=== PATIENT | male | born 1975 | race Caucasian/White ===

== ENCOUNTER 2020-04-09 15:23 | Outpatient (REF) | payer OTHER, SELFPAY ==
--- NOTE | 2020-04-09 15:24 | MR_ITS ---
EXAMINATION: MR THORACIC SPINE WITHOUT AND WITH CONTRAST CLINICAL INFORMATION: Thoracic spine tumor. COMPARISON: There are no prior images available for comparison. Reference is made to reports of an MRI scan of the abdomen [facility] 11/21/2019, and a CT scan of the abdomen and pelvis 11/20/2019. By report, the prior study demonstrated a lesion in the right neural foramen of T11. TECHNIQUE: MRI of the thoracic spine was obtained using routine sequences with and without contrast. Intravenous contrast: Gadavist 7 mL. Axial images do not include the levels of T1-T2 and T2-T3. FINDINGS: VERTEBRAL BODIES AND PARASPINAL STRUCTURES: There is a very slight dextroscoliosis. There is mild multilevel narrowing of intervertebral disc height. Vertebral body heights and contours are maintained and no fractures are demonstrated. Overall, marrow signal is homogenous. The paravertebral and visualized posterior thoracic and posterior superior abdominal structures are unremarkable. The conus is at the level of L1. Accounting for artifact, spinal cord signal appears normal. SPINAL LEVELS: T3-T4: There is a small posterior disc protrusion to the right of midline. There is no spinal cord compression or central stenosis. The neural foramina are patent bilaterally. T4-T5 through T10-T11: Posterior disc contours are normal. There is no spinal cord compression. The neural foramina are patent bilaterally. T11-T12: Posterior disc contour is normal. 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 It measures 1.8 x 1.2 x 2.3 cm in oblique AP, transverse and craniocaudal dimensions. There is no mass effect on the thecal sac. There is remodeling of the adjacent lamina of T11, and the inferior T11 facet, on the right. It does not demonstrate abnormal enhancement. There is no central stenosis or spinal cord compression. The left neural foramen is normal. T12-L1: The facet joints appear normal bilaterally. Disc contour is normal. There is no central stenosis or foraminal narrowing. MR/MR thoracic spine wo/w con IMPRESSION: 1. 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 It does not demonstrate abnormal enhancement. There is some remodeling of the adjacent osseous structures. 2. There are mild spondylitic changes at other levels as described above. There is no spinal cord compression or central stenosis. 3. If prior studies become available, direct comparison can be made.
== END 2020-04-09 23:59 | disposition home or self-care (01) ==
LOC: HO.MRI 15:23
PROVIDERS: PCP Internal Medicine; Visit Provider Internal Medicine
DX: D42.9 Neoplasm of uncertain behavior of meninges, unspecified (principal)
CPT/HCPCS: 72157; A9585

== ENCOUNTER 2020-11-22 14:03 | Outpatient (REF) | payer OTHER, SELFPAY ==
[2020-11-22 14:48] LABS: MANUAL DIFF FLAG NO
[2020-11-22 14:50] LABS: Basophils Percent Auto 0.4 % (0-2); Eosinophils Absolute Auto 0.2 X10*3/uL (0.0-0.4); Eosinophils Percent Auto 4.3 % (0-4); Hematocrit 40.5 % (42-52); Hemoglobin 13.9 g/dl (14.0-18.0); Lymphocytes Absolute Auto 1.6 X10*3/uL (1.2-4.9); Lymphocytes Percent Auto 31.1 % (20-40); Mean Corpuscular HGB Conc 34.3 g/dl (31.0-36.0); Mean Corpuscular Hemoglobin 28.6 pg (27.0-33.0); Mean Corpuscular Volume 83.3 fL (80-98); Mean Platelet Volume 11.3 fL (9.4-12.4); Monocytes Absolute Auto 0.4 X10*3/uL (0.1-1.2); Monocytes Percent Auto 7.6 % (2-11); Neutrophils Absolute Auto 2.9 X10*3/uL (2.0-8.3); Neutrophils Percent Auto 56.6 % (45-73); Platelet Count 148 X10*3/uL (160-400); Red Blood Count 4.86 X10*6/uL (4.60-5.80); Red Cell Distribution Width 12.3 % (11.0-16.0); White Blood Count 5.1 X10*3/uL (4.8-10.8)
[2020-11-22 15:11] LABS: Alanine Aminotransferase 16 U/L (0-40); Albumin Level 4.3 g/dL (3.5-5.0); Alkaline Phosphatase 60 U/L (39-117); Anion Gap 12 (12-20); Aspartate Amino Transferase 17 U/L (5-37); Bilirubin Total 0.9 mg/dL (0.0-1.0); Blood Urea Nitrogen 19 mg/dL (9-16); Calcium 9.3 mg/dL (8.4-10.2); Carbon Dioxide 29 mmol/L (22-29); Chloride 105 mmol/L (96-108); Estimated Glomerular Filt Rate > 60; Glucose Random 86 mg/dL (60-115); Potassium 4.5 mmol/L (3.3-5.1); Sodium 141 mmol/L (135-145); Total Protein 6.8 g/dL (6.5-8.0)
[2020-11-22 15:33] LABS: Free T4 (Free Thyroxine) 0.98 ng/dL (0.71-1.85); Thyroid Stimulating Hormone 0.45 uIU/mL (0.32-4.0)
[2020-11-22 15:45] LABS: Folate 9.7 ng/mL (> or = 4.0); Vitamin B12 532 pg/mL (200-900)
== END 2020-11-22 14:04 | disposition home or self-care (01) ==
LOC: HO.LAB 14:03
PROVIDERS: PCP Internal Medicine; Visit Provider Internal Medicine
DX: F41.9 Anxiety disorder, unspecified (principal)
CPT/HCPCS: 36415; 80053; 82607; 82746; 84439; 84443; 85025

== ENCOUNTER 2022-04-30 10:02 | Outpatient (REF) | payer OTHER, SELFPAY ==
[2022-04-30 10:13] LABS: MANUAL DIFF FLAG NO
[2022-04-30 10:40] LABS: Basophils Percent Auto 0.6 % (0-2); Eosinophils Absolute Auto 0.1 X10*3/uL (0.0-0.4); Eosinophils Percent Auto 2.5 % (0-4); Hematocrit 43.2 % (42.0-52.0); Hemoglobin 14.6 g/dl (14.0-18.0); Imm Gran Abs Auto 0.01 X10*3/uL (0.00-0.03); Imm Gran Pct Auto 0.2 % (0.0-0.4); Immature Retic Fraction 3.9 % (2.3-13.4); Lymphocytes Absolute Auto 1.2 X10*3/uL (1.2-4.9); Lymphocytes Percent Auto 25.1 % (20-40); Mean Corpuscular HGB Conc 33.8 g/dl (31.0-36.0); Mean Corpuscular Hemoglobin 28.2 pg (27.0-33.0); Mean Corpuscular Volume 83.4 fL (80.0-98.0); Mean Platelet Volume 10.7 fL (9.4-12.4); Monocytes Absolute Auto 0.5 X10*3/uL (0.1-1.2); Monocytes Percent Auto 9.6 % (2-11); Platelet Count 173 X10*3/uL (160-400); Red Blood Count 5.18 X10*6/uL (4.60-5.80); Red Cell Distribution Width 12.4 % (11.0-16.0); Retic HGB Equivalent 34.8 pg (30.0-35.0); Reticulocyte Percent 0.8 % (0.5-1.8); Reticulocytes Absolute 0.044 X10*6/uL (0.026-0.095); White Blood Count 4.8 X10*3/uL (4.8-10.8)
[2022-04-30 11:26] LABS: Alanine Aminotransferase 15 U/L (0-40); Albumin Level 4.4 g/dL (3.5-5.0); Alkaline Phosphatase 62 U/L (39-117); Anion Gap 8 (12-20); Aspartate Amino Transferase 17 U/L (5-37); Bilirubin Total 1.4 mg/dL (0.0-1.0); Blood Urea Nitrogen 16 mg/dL (9-16); Calcium 9.3 mg/dL (8.4-10.2); Carbon Dioxide 32 mmol/L (22-29); Chloride 105 mmol/L (96-108); Estimated Glomerular Filt Rate > 60; Glucose Random 87 mg/dL (60-115); Iron 114 mcg/dL (45-160); Percent Iron Saturation 38 % (15-50); Potassium 4.3 mmol/L (3.3-5.1); Sodium 141 mmol/L (135-145); Total Iron Binding Capacity 301 mcg/dL (228-428); Unsaturated Iron Binding 187 ug/dL
[2022-04-30 11:51] LABS: Ferritin 52 ng/mL (20-250)
[2022-04-30 11:52] LABS: Folate 13.5 ng/mL (> or = 4.0); Vitamin B12 681 pg/mL (200-900)
== END 2022-04-30 10:03 | disposition home or self-care (01) ==
LOC: HO.LAB 10:02
PROVIDERS: PCP Internal Medicine; Visit Provider Internal Medicine
DX: F41.1 Generalized anxiety disorder (principal); D64.9 Anemia, unspecified
CPT/HCPCS: 36415; 80053; 82607; 82728; 82746; 83540; 85025; 85045

== ENCOUNTER 2022-10-13 15:49 | Outpatient (AMB) | payer OTHER, SELFPAY ==
[2022-10-13 15:56] VITALS: BP 130/82; PULSE 63; O2SAT 96; BMI 20.3
--- NOTE | 2022-10-13 15:56 | A.OFFPC_ITS ---
Vital Signs 10/13/22 15:56 Height 6 ft 1.5 in Weight 156 lb 2 oz BMI 20.3 BP 130/82 Blood Pressure Location Lt brachial Position Sitting Pulse 63 Pulse Source Pulse Oximeter Pulse Oximetry (%) 96 Oxygen Delivery Method Room Air Intake Visit Reasons: Generalized anxiety disorder Aoc Plans Intelligence Officer Chief Required: No Accompanied by: Self / Same As Patient Allergies No Known Allergies Allergy (Verified 10/13/22 15:57) Medication List - Last Reconciled 10/13/22 by Bess Eduardo MD buprenorphine-naloxone 12-3 mg (Suboxone) 1.5 film sublingual DAILY clotrimazole 1% 1 appl topical BID 4 weeks lorazepam 0.5 mg PO DAILY PRN Tobacco use date assessed: 10/13/22 Dental Screening Dental Screen Date: 10/13/22 Did you have a dental visit in the last 12 months?: Yes Did you have a dental problem in the last 6 months where you did not have access to dental care?: No Was dental information given to patient?: Patient has dentist HPI Generalized anxiety disorder HPI Details 47-year-old male with a history of polysubstance abuse being followed at [facility], generalized anxiety disorder on benzodiazepines coming in for follow-up. Last seen in April 2022. still mountain biking - R hand pain and cannot open hand- deny trauma [facility] Medical History (Updated 10/13/22 @ 16:04 by Bess Eduardo MD) Fall Generalized anxiety disorder Hypertension Laryngitis Lesion of penis Thrombocytopenia Tinea corporis Varicose vein of leg Surgical History H/O knee surgery History of inguinal hernia repair History of nasal surgery History of surgery on arm Family History Father Nasopharyngeal cancer Mother Alive and well Brother Alive and well Sister Alive and well Maternal Grandfather Throat cancer Social History Housing: House Alcohol intake: never Patient Tobacco Use Status: Former Tobacco user Tobacco use type: Cigarette e-Cigarette/Vaping Use: Never Used Second Hand Smoke Exposure: No service: No Current occupational status: employed Cognitive needs: No Hearing needs: No Vision needs: No Questionnaire PHQ-9 Over the last 2 weeks, how often have you been bothered by any of the following problems? 1. Little interest or pleasure in doing things: not at all 2. Feeling down, depressed, or hopeless: not at all 3. Trouble falling or staying asleep, or sleeping too much: not at all 4. Feeling tired or having little energy: not at all 5. Poor appetite or overeating: not at all 6. Feeling bad about yourself - or that you are a failure or have let yourself or your family down: not at all 7. Trouble concentrating on things, such as reading the newspaper or watching television: not at all 8. Moving or speaking so slowly that other people could have noticed. Or the opposite - being so fidgety or restless that you have been moving around a lot more than usual: not at all 9. Thoughts that you would be better off or of hurting yourself in some way: not at all Total score: 0 Depression Screening Interpretation: Negative Source: Developed by Drs. Ishaan Leos, Rashmi Maravilla, Genaro Dietrich and colleagues, with an educational ganesh from [employer]. Thrive Questionnaire Date Thrive assessed: 10/13/22 I am a: Patient What is your living situation today?: I have a steady place to live Within the past 12 months, did the food you bought not last and you didn't have the money to get more?: Never true Within the past 12 months, did you worry whether your food would run out before you got money to buy more?: Never true Do you have trouble paying for medicines?: No Do you have trouble getting transportation to medical appointments?: No Do you have trouble paying your heating and electricity bill?: No Do you have trouble taking care of your child, family member or friend?: No Do you have trouble with day-to-day activities such as bathing, preparing meals, shopping, managing finances, etc.?: No Are you currently unemployed and looking for a job?: No Are you interested in more education?: No Please select the resources that you would like help with: None Currently or been in a relationship where the following occur: no concerns reported AUDIT C Alcohol Use Questionnaire (AUDIT-C) 1. How often do you have a drink containing alcohol?: Never 3. How often do you have six or more drinks on one occasion?: Never Total Score: 0 Score Reviewed/Action Taken: No GUSTAVO-7 AMB Questionnaire GUSTAVO-7 Date GUSTAVO - 7 assessed: 10/13/22 Feeling nervous, anxious, or on edge: 1 = Several days Not being able to stop or control worryin = Several days Worrying too much about different things: 1 = Several days Trouble relaxin = Several days Being so restless that it is hard to sit still: 1 = Several days Becoming easily annoyed or irritable: 1 = Several days Feeling afraid as if something awful might happen: 1 = Several days Total GUSTAVO-7 score (0-4 normal; 5-9 mild; 10-14 moderate; 15-21 severe): 7 Source: Developed by Drs. Ishaan Leos, Rashmi Maravilla, Genaro Dietrich and colleagues, with an educational ganesh from [employer]. Physical exam (Primary Care) Vital Signs: Last Vital Signs Pulse 63 10/13/22 15:56 BP 130/82 10/13/22 15:56 Pulse Ox 96 10/13/22 15:56 Oxygen Delivery Method Room Air 10/13/22 15:56 BMI result Body Mass Index 20.3 Tobacco/Smoking Status: Tobacco use Status Tobacco use date assessed 10/13/22 10/13/22 16:03 Patient Tobacco Use Status Former Tobacco user 10/13/22 16:03 Tobacco use type Cigarette 10/13/22 16:03 e-Cigarette/Vaping Use Never Used 10/13/22 16:03 PHQ-9: PHQ-9 Score PHQ-9: Total score 0 10/13/22 16:03 Depression Screening Interpretation: Negative Thrive Assessment: Date of Thrive Assessment Date Thrive assessed 10/13/22 10/13/22 16:03 Currently or been in a relationship where the following occur: no concerns reported Const General: alert; No acute distress Eyes Conjunctivae: conjunctivae normal Resp Auscultation: clear to auscultation bilaterally Cardio Rate: regular rate Rhythm: regular rhythm GI Inspection: Yes normal to inspection Extrem General: Yes normal to inspection and No edema Assessment and Plan Assessment & Plan (1) Polysubstance abuse: Comment: [facility] Code(s): F19.10 - Other psychoactive substance abuse, uncomplicated Plan: Continue to follow-up with [facility] (2) Generalized anxiety disorder: Comment: May 2018 [facility] Counseling Code(s): F41.1 - Generalized anxiety disorder Plan: Continue with counseling and therapy (3) Colon cancer screening: Code(s): Z12.11 - Encounter for screening for malignant neoplasm of colon Plan: Reminded about colon cancer screening Orders: Referrals Gastroenterology Referral Z12.11 - Encounter for screening for malignant neoplasm of colon Coding Level of Care Code Est Pt Level 4 (21008) Diagnoses Polysubstance abuse F19.10 Generalized anxiety disorder F41.1 Colon cancer screening Z12.11 Additional Codes PHQ-9 - 47032 - PHQ-9 Billing: Y ([id number])
== END 2022-10-13 16:12 | disposition home or self-care (01) ==
PROVIDERS: PCP Internal Medicine; Visit Provider Internal Medicine
DX: F19.10 Other psychoactive substance abuse, uncomplicated (principal); F41.1 Generalized anxiety disorder; Z12.11 Encounter for screening for malignant neoplasm of colon
CPT/HCPCS: 99214

== ENCOUNTER → 2022-12-22 16:13 | Outpatient (BNVA) | payer OTHER, SELFPAY | PROVIDERS: PCP Internal Medicine; Visit Provider Nurse Practitioner Family ==

== ENCOUNTER 2023-02-01 09:30 | Outpatient (AMB) | payer OTHER, SELFPAY ==
[2023-02-01 09:31] VITALS: BP 126/70; PULSE 62; O2SAT 96; BMI 21.3
--- NOTE | 2023-02-01 09:31 | A.OFFPC_ITS ---
Vital Signs 02/01/23 09:31 Height 6 ft 1.5 in Weight 164 lb BMI 21.3 BP 126/70 Blood Pressure Location Lt brachial Position Sitting Pulse 62 Pulse Source Pulse Oximeter Pulse Oximetry (%) 96 Oxygen Delivery Method Room Air Intake Visit Reasons: gustavo Auto Tester Required: No Allergies No Known Allergies Allergy (Verified 02/01/23 09:32) Tobacco use date assessed: 02/01/23 Dental Screening Dental Screen Date: 02/01/23 Did you have a dental visit in the last 12 months?: No Did you have a dental problem in the last 6 months where you did not have access to dental care?: No Was dental information given to patient?: Patient has dentist HPI gustavo HPI Details 47-year-old male with a history of gener alized anxiety disorder, polysubstance abuse coming in for follow-up. Last seen in October 2022. Patient was reminded about colon cancer screening. 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 Otherwise no nausea no vomiting no chest pains no shortness of breath. Had some problems with the right 3rd meta carpal area but declined any further workup for now occasionally does lock up but discussed about trigger fingers and management. [facility] Medical History Tinea corporis Varicose vein of leg Laryngitis Thrombocytopenia Generalized anxiety disorder Lesion of penis Fall Hypertension Surgical History H/O knee surgery History of nasal surgery History of inguinal hernia repair History of surgery on arm Family History Father Nasopharyngeal cancer Mother Alive and well Brother Alive and well Sister Alive and well Maternal Grandfather Throat cancer Social History Housing: House Alcohol intake: never Patient Tobacco Use Status: Former Tobacco user Tobacco use type: Cigarette e-Cigarette/Vaping Use: Never Used Second Hand Smoke Exposure: No service: No Current occupational status: employed Cognitive needs: No Hearing needs: No Vision needs: No Questionnaire PHQ-9 Over the last 2 weeks, how often have you been bothered by any of the following problems? 1. Little interest or pleasure in doing things: not at all 2. Feeling down, depressed, or hopeless: not at all 3. Trouble falling or staying asleep, or sleeping too much: not at all 4. Feeling tired or having little energy: not at all 5. Poor appetite or overeating: not at all 6. Feeling bad about yourself - or that you are a failure or have let yourself or your family down: not at all 7. Trouble concentrating on things, such as reading the newspaper or watching television: not at all 8. Moving or speaking so slowly that other people could have noticed. Or the opposite - being so fidgety or restless that you have been moving around a lot more than usual: not at all 9. Thoughts that you would be better off or of hurting yourself in some way: not at all Total score: 0 Depression Screening Interpretation: Negative Depression Screening Done: Yes Source: Developed by Drs. Ishaan Leos, Rashmi Maravilla, Genaro Dietrich and colleagues, with an educational ganesh from [employer]. Thrive Questionnaire Date Thrive assessed: 10/13/22 AUDIT C Alcohol Use Questionnaire (AUDIT-C) 1. How often do you have a drink containing alcohol?: Never 3. How often do you have six or more drinks on one occasion?: Never Total Score: 0 Score Reviewed/Action Taken: No GUSTAVO-7 AMB Questionnaire GUSTAVO-7 Date GUSTAVO - 7 assessed: 02/01/23 Feeling nervous, anxious, or on edge: 0 = Not at all Not being able to stop or control worryin = Not at all Worrying too much about different things: 0 = Not at all Trouble relaxin = Not at all Being so restless that it is hard to sit still: 0 = Not at all Becoming easily annoyed or irritable: 0 = Not at all Feeling afraid as if something awful might happen: 0 = Not at all Total GUSTAVO-7 score (0-4 normal; 5-9 mild; 10-14 moderate; 15-21 severe): 0 Source: Developed by Drs. Ishaan Leos, Rashmi Maravilla, Genaro Dietrich and colleagues, with an educational ganesh from [employer]. Physical exam (Primary Care) Vital Signs: Last Vital Signs Pulse 62 02/01/23 09:31 BP 126/70 02/01/23 09:31 Pulse Ox 96 02/01/23 09:31 Oxygen Delivery Method Room Air 02/01/23 09:31 BMI result Body Mass Index 21.3 Tobacco/Smoking Status: Tobacco use Status Tobacco use date assessed 02/01/23 02/01/23 09:32 Patient Tobacco Use Status Former Tobacco user 02/01/23 09:32 Tobacco use type Cigarette 02/01/23 09:32 e-Cigarette/Vaping Use Never Used 02/01/23 09:32 PHQ-9: PHQ-9 Score PHQ-9: Total score 0 02/01/23 09:36 Depression Screening Interpretation: Negative Thrive Assessment: Date of Thrive Assessment Date Thrive assessed 10/13/22 02/01/23 09:32 Const General: alert; No acute distress Eyes Conjunctivae: conjunctivae normal Resp Auscultation: clear to auscultation bilaterally Cardio Rate: regular rate Rhythm: regular rhythm GI Inspection: Yes normal to inspection Extrem General: Yes normal to inspection and No edema Assessment and Plan Assessment & Plan (1) Polysubstance abuse: Comment: [facility] Code(s): F19.10 - Other psychoactive substance abuse, uncomplicated Plan: Continue to follow-up with [facility] (2) Generalized anxiety disorder: Comment: May 2018 [facility] Counseling Code(s): F41.1 - Generalized anxiety disorder Plan: Continue with present medication and counseling (3) Colon cancer screening: Code(s): Z12.11 - Encounter for screening for malignant neoplasm of colon Plan: Patient has met with gastroenterology but has not had a schedule. Orders: Orders Complete Blood Count Auto Diff 3 Months F41.1 - Generalized anxiety disorder Comprehensive Met. Panel 3 Months F41.1 - Generalized anxiety disorder Free T4 (Free Thyroxine) 3 Months F41.1 - Generalized anxiety disorder Thyroid Stimulating Hormone 3 Months F41.1 - Generalized anxiety disorder Vitamin B12 and Folate 3 Months F41.1 - Generalized anxiety disorder Lipid Panel 3 Months E78.00 - Pure hypercholesterolemia, unspecified, F41.1 - Generalized anxiety disorder Coding Level of Care Code Est Pt Level 4 (84667) Diagnoses Polysubstance abuse F19.10 Generalized anxiety disorder F41.1 Colon cancer screening Z12.11
== END 2023-02-01 10:07 | disposition home or self-care (01) ==
PROVIDERS: PCP Internal Medicine; Visit Provider Internal Medicine
DX: F19.10 Other psychoactive substance abuse, uncomplicated (principal); F41.1 Generalized anxiety disorder; Z12.11 Encounter for screening for malignant neoplasm of colon; Z23 Encounter for immunization
CPT/HCPCS: 90471; 90686; 99214

== ENCOUNTER 2023-05-07 09:29 | Outpatient (AMB) | payer OTHER, SELFPAY ==
[2023-05-07 09:34] VITALS: BP 126/80; PULSE 65; O2SAT 98; BMI 21.3
--- NOTE | 2023-05-07 09:34 | MHC.PC.OV ---
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 Required: No Accompanied by: Self / Same As Patient Allergies No Known Allergies Allergy (Verified 05/07/23 09:37) Medication List - Last Reconciled 05/07/23 by Bess Eduardo MD bisacodyl (Dulcolax (bisacodyl)) 10 mg (2 x 5 mg) PO ONCE 1 day buprenorphine-naloxone 12-3 mg (Suboxone) 1.5 film sublingual DAILY lorazepam 0.5 mg PO DAILY PRN polyethylene glycol 3350 (Miralax) 238 grams PO ONCE Tobacco use date assessed: 05/07/23 Dental Screening Dental Screen Date: 05/07/23 Did you have a dental visit in the last 12 months?: Yes Did you have a dental problem in the last 6 months where you did not have access to dental care?: No Was dental information given to patient?: Patient has dentist HPI GUSTAVO HPI Details 47-year-old male with a history of polysubstance abuse seeing [facility] on Suboxone, generalized anxiety disorder last seen in January 2023. Patient is here for follow-up. Does get refill on lorazepam. [facility] Medical History Tinea corporis Varicose vein of leg Laryngitis Thrombocytopenia Generalized anxiety disorder Lesion of penis Fall Hypertension Surgical History H/O knee surgery History of nasal surgery History of inguinal hernia repair History of surgery on arm Family History Father Nasopharyngeal cancer Mother Alive and well Brother Alive and well Sister Alive and well Maternal Grandfather Throat cancer Social History Housing: House Alcohol intake: never Patient Tobacco Use Status: Former Tobacco user Tobacco use type: Cigarette e-Cigarette/Vaping Use: Never Used Second Hand Smoke Exposure: No service: No Current occupational status: employed Cognitive needs: No Hearing needs: No Vision needs: No Questionnaire PHQ-9 Over the last 2 weeks, how often have you been bothered by any of the following problems? 1. Little interest or pleasure in doing things: not at all 2. Feeling down, depressed, or hopeless: not at all 3. Trouble falling or staying asleep, or sleeping too much: not at all 4. Feeling tired or having little energy: not at all 5. Poor appetite or overeating: not at all 6. Feeling bad about yourself - or that you are a failure or have let yourself or your family down: not at all 7. Trouble concentrating on things, such as reading the newspaper or watching television: not at all 8. Moving or speaking so slowly that other people could have noticed. Or the opposite - being so fidgety or restless that you have been moving around a lot more than usual: not at all 9. Thoughts that you would be better off or of hurting yourself in some way: not at all Total score: 0 Depression Screening Interpretation: Negative Depression Screening Done: Yes 30980 - PHQ-9 Billing: Yes Source: Developed by Drs. Ishaan Leos, Rashmi Maravilla, Genaro Dietrich and colleagues, with an educational ganesh from [email or web address]. Thrive Questionnaire Date Thrive assessed: 05/07/23 I am a: Patient What is your living situation today?: I have a steady place to live Within the past 12 months, did the food you bought not last and you didn't have the money to get more?: Never true Within the past 12 months, did you worry whether your food would run out before you got money to buy more?: Never true Do you have trouble paying for medicines?: No Do you have trouble getting transportation to medical appointments?: No Do you have trouble paying your heating and electricity bill?: No Do you have trouble taking care of your child, family member or friend?: No Do you have trouble with day-to-day activities such as bathing, preparing meals, shopping, managing finances, etc.?: No Are you currently unemployed and looking for a job?: No Are you interested in more education?: No Please select the resources that you would like help with: None Currently or been in a relationship where the following occur: no concerns reported THRIVE Score: 0 AUDIT C Alcohol Use Questionnaire (AUDIT-C) 1. How often do you have a drink containing alcohol?: Monthly or less 3. How often do you have six or more drinks on one occasion?: Never Total Score: 1 GUSTAVO-7 AMB Questionnaire GUSTAVO-7 Date GUSTAVO - 7 assessed: 05/07/23 Feeling nervous, anxious, or on edge: 0 = Not at all Not being able to stop or control worryin = Not at all Worrying too much about different things: 0 = Not at all Trouble relaxin = Not at all Being so restless that it is hard to sit still: 0 = Not at all Becoming easily annoyed or irritable: 0 = Not at all Feeling afraid as if something awful might happen: 0 = Not at all Total GUSTAVO-7 score (0-4 normal; 5-9 mild; 10-14 moderate; 15-21 severe): 0 Source: Developed by Drs. Ishaan Leos, Rashmi Maravilla, Genaro Dietrich and colleagues, with an educational ganesh from [email or web address]. GUSTAVO-7 Assessment Billing GUSTAVO-7 Assessment Tool: GUSTAVO-7 Assessment [id number] Physical exam (Primary Care) Vital Signs: Last Vital Signs Pulse 65 05/07/23 09:34 BP 126/80 05/07/23 09:34 Pulse Ox 98 05/07/23 09:34 Oxygen Delivery Method Room Air 05/07/23 09:34 BMI result Body Mass Index 21.3 Tobacco/Smoking Status: Tobacco use Status Tobacco use date assessed 05/07/23 05/07/23 09:38 Patient Tobacco Use Status Former Tobacco user 05/07/23 09:34 Tobacco use type Cigarette 05/07/23 09:34 e-Cigarette/Vaping Use Never Used 05/07/23 09:34 PHQ-9: PHQ-9 Score PHQ-9: Total score 0 05/07/23 09:38 Depression Screening Interpretation: Negative Thrive Assessment: Date of Thrive Assessment Date Thrive assessed 05/07/23 05/07/23 09:38 Currently or been in a relationship where the following occur: no concerns reported Const General: alert; No acute distress Eyes Conjunctivae: conjunctivae normal Resp Auscultation: clear to auscultation bilaterally Cardio Rate: regular rate Rhythm: regular rhythm GI Inspection: Yes normal to inspection Extrem General: Yes normal to inspection and No edema Assessment and Plan Assessment & Plan (1) Generalized anxiety disorder: Comment: May 2018 [facility] Counseling Code(s): F41.1 - Generalized anxiety disorder Plan: Continue with counseling and therapy (2) Polysubstance abuse: Comment: [facility] Code(s): F19.10 - Other psychoactive substance abuse, uncomplicated Plan: Continue with follow-up with Suboxone treatment (3) Colon cancer screening: Code(s): Z12.11 - Encounter for screening for malignant neoplasm of colon Plan: Reminded about colonoscopy.. Has a schedule in June 2023 Coding Level of Care Code Est Pt Level 4 (70694) Diagnoses Generalized anxiety disorder F41.1 Polysubstance abuse F19.10 Colon cancer screening Z12.11 Additional Codes GUSTAVO-7 Assessment Billing - GUSTAVO-7 Assessment Tool: GUSTAVO-7 Assessment [id number] ([id number])
== END 2023-05-07 09:55 | disposition home or self-care (01) ==
PROVIDERS: PCP Internal Medicine; Visit Provider Internal Medicine
DX: F41.1 Generalized anxiety disorder (principal); F19.10 Other psychoactive substance abuse, uncomplicated; Z12.11 Encounter for screening for malignant neoplasm of colon
CPT/HCPCS: 99214

== ENCOUNTER 2023-06-03 10:08 | Day surgery (SDC) | payer OTHER, SELFPAY ==
[2023-06-01 11:29] VITALS: BMI 20.2
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
[2023-06-03 10:15] VITALS: BMI 20.6
--- NOTE | 2023-06-03 10:23 | PC.NURSE ---
patient went into the bathroom and output was clear
[2023-06-03 10:25] VITALS: BP 118/75; PULSE 76; RESP 16; TEMP 36.9; O2SAT 97
[2023-06-03] MEDS: Lactated Ringers 1,000 ML 100 ML IVCONT (10:40)
--- NOTE | 2023-06-03 10:59 | MHC.SHP ---
Pre-Procedural Eval Section A - 24 Hr Update-Section A only Date of Service: 06/03/23 Section B - Complete if H&P > 30 days Chief Complaint: screening Details of Present Illness: PMH: Tinea corporis Varicose vein of leg Laryngitis Thrombocytopenia Generalized anxiety disorder Lesion of penis Fall Hypertension Surgical History H/O knee surgery History of nasal surgery History of inguinal hernia repair History of surgery on arm Relevant Social History: Other (specify) (prev hx of substance use ) Present Medications: see Short Stay Collaborative assessment History of Previous Operations: No relevant previous surgery Allergies: Allergies Allergy/AdvReac Type Severity Reaction Status Date / Time No Known Allergies Allergy Verified 05/07/23 09:37 Review of Systems Review of Systems Comment: 10 point ROS negative Exam Exam Comment: Gen appear: No acute distress HEENT: no icterus Chest: No overt resp distress Abd: soft, nontender, nondistended Psych: Stable affect, answering questions appropriately Neuro: A/Ox3 noted to move all extremities spontaneously Ext: no peripheral edema Plan Diagnosis/Plan: Unchanged I have reviewed the history and physical and performed a pertinent physical examination on my patient. No changes have occurred unless specified. Time Spent With Patient Time: Total time managing care of this patient today ____ minutes.
--- NOTE | 2023-06-03 11:01 | P.OP_ITS ---
Operative Note Operative Note Date of Service: 06/03/23 Narrative: Procedure: Colonoscopy Indication: Screening Endoscopist: Yadi Mathew MD Anesthesia Provider: Dr Richelle Dobson Anesthesia type: MAC Instrument: Olympus [id number]-[id number] Consent: Indication, risks vs benefits, and alternatives were discussed with the patient who gave written informed consent to proceed. EKG, pulse, pulse oximetry and blood pressure were monitored throughout the procedure. Please see anesthesia flowsheet. Procedure: The patient was brought to the procedure room and placed in the left lateral decubitus position. IV medications were administered by the anesthesia provider in attendance. A digital rectal exam was performed which was normal. A distal attachment cap was affixed to the tip of the scope and the colonoscope was then inserted through the anus and advanced through the colon to the cecum at 75 cm,and terminal ileum. Mucosa was carefully examined under high definition white light as the instrument was slowly withdrawn in a retrograde panoramic fashion. Retroflexion was performed in rectum. The procedure was not difficult. There were no immediate obvious complications. The quality of the prep was BBPS: 2+2+2 = adequate Withdrawal time 12 minutes. Limitations: No limitations. Findings: Mucosa: Liquid stool throughout the colon which was flushed out and suctioned. Mucosa otherwise normal to cecum and terminal ileum. Protruding lesions: * Medium internal hemorrhoids without stigmata of recent bleeding. Impression: 1. Normal colon and terminal ileum mucosa 2. Internal hemorrhoids Recommendations: - Repeat colonoscopy for asymptomatic colorectal ca screening in 5 years due to prep. - Consider one time Hep B and C serologies for screening, given hx of polysubstance use.
[2023-06-03 11:40] VITALS: BP 106/55; PULSE 76; RESP 18; TEMP 36.3; O2SAT 97
[2023-06-03 11:55] VITALS: BP 106/57; PULSE 64; RESP 14; O2SAT 98
[2023-06-03 12:10] VITALS: BP 110/61; PULSE 68; RESP 14; TEMP 36.2; O2SAT 98
== END 2023-06-03 12:48 | disposition home or self-care (01) ==
PROVIDERS: PCP Internal Medicine; Visit Provider Internal Medicine
PROC: 0DJD8ZZ Inspection of Lower Intestinal Tract, Via Natural or Artificial Opening Endoscopic (ICD-10-PCS; CPT 45378; principal; 2023-06-03 11:30)
DX: Z12.11 Encounter for screening for malignant neoplasm of colon (principal); K64.8 Other hemorrhoids; I10 Essential (primary) hypertension; F11.20 Opioid dependence, uncomplicated
CPT/HCPCS: 45378; J2704

== ENCOUNTER → 2023-06-03 10:08 | Outpatient (BNV) | payer OTHER, SELFPAY | PROVIDERS: PCP Internal Medicine; Visit Provider Internal Medicine | DX: Z12.11 Encounter for screening for malignant neoplasm of colon (principal); K64.8 Other hemorrhoids | CPT/HCPCS: 45378 ==

== ENCOUNTER 2023-08-12 09:31 | Outpatient (AMB) | payer OTHER, SELFPAY ==
--- NOTE | 2023-08-12 09:34 | MHC.PC.OV ---
Vital Signs 08/12/23 09:35 Height 6 ft 1.5 in Weight 158 lb BMI 20.6 BP 116/72 Blood Pressure Location Lt brachial Position Sitting Pulse 66 Pulse Source Pulse Oximeter Pulse Oximetry (%) 97 Oxygen Delivery Method Room Air Intake Visit Reasons: GUSTAVO Outpatient Coordinator Required: No Allergies No Known Allergies Allergy (Verified 08/12/23 09:38) Medication List - Last Reconciled 08/12/23 by Bess Eduardo MD buprenorphine-naloxone 12-3 mg (Suboxone) 1.5 film sublingual DAILY lorazepam 0.5 mg PO DAILY PRN Tobacco use date assessed: 05/07/23 Dental Screening Dental Screen Date: 05/07/23 HPI GUSTAVO HPI Details 48-year-old male with a history of polysubstance abuse on Suboxone generalized anxiety disorder coming in for follow-up last seen in May 2023 does have counseling. Patient had colonoscopy done in May 2023 and was set for 5 years. Due to poor prep was set for colonoscopy. [facility] Medical History (Updated 08/12/23 @ 09:52 by Bess Eduardo MD) Colon cancer screening Tinea corporis Varicose vein of leg Laryngitis Thrombocytopenia Generalized anxiety disorder Lesion of penis Fall Hypertension Surgical History (Updated 06/16/23 @ 14:26 by Amanda Liu) Hx of colonoscopy H/O knee surgery History of nasal surgery History of inguinal hernia repair History of surgery on arm Family History Father Nasopharyngeal cancer Mother Alive and well Brother Alive and well Sister Alive and well Maternal Grandfather Throat cancer Social History Housing: House Alcohol intake: never Patient Tobacco Use Status: Former Tobacco user Tobacco use type: Cigarette e-Cigarette/Vaping Use: Never Used Second Hand Smoke Exposure: No service: No Current occupational status: employed Cognitive needs: No Hearing needs: No Vision needs: No Questionnaire PHQ-9 Over the last 2 weeks, how often have you been bothered by any of the following problems? 1. Little interest or pleasure in doing things: not at all 2. Feeling down, depressed, or hopeless: not at all 3. Trouble falling or staying asleep, or sleeping too much: not at all 4. Feeling tired or having little energy: not at all 5. Poor appetite or overeating: not at all 6. Feeling bad about yourself - or that you are a failure or have let yourself or your family down: not at all 7. Trouble concentrating on things, such as reading the newspaper or watching television: not at all 8. Moving or speaking so slowly that other people could have noticed. Or the opposite - being so fidgety or restless that you have been moving around a lot more than usual: not at all 9. Thoughts that you would be better off or of hurting yourself in some way: not at all Total score: 0 Depression Screening Interpretation: Negative Depression Screening Done: Yes 54463 - PHQ-9 Billing: Yes Source: Developed by Drs. Ishaan Leos, Rashmi Maravilla, Genaro Dietrich and colleagues, with an educational ganesh from [employer]. Thrive Questionnaire Date Thrive assessed: 08/12/23 I am a: Patient What is your living situation today?: I have a steady place to live Within the past 12 months, did the food you bought not last and you didn't have the money to get more?: Never true Within the past 12 months, did you worry whether your food would run out before you got money to buy more?: Never true Do you have trouble paying for medicines?: No Do you have trouble getting transportation to medical appointments?: No Do you have trouble paying your heating and electricity bill?: No Do you have trouble taking care of your child, family member or friend?: No Do you have trouble with day-to-day activities such as bathing, preparing meals, shopping, managing finances, etc.?: No Are you currently unemployed and looking for a job?: No Are you interested in more education?: No Please select the resources that you would like help with: None Currently or been in a relationship where the following occur: no concerns reported THRIVE Score: 0 AUDIT C Alcohol Use Questionnaire (AUDIT-C) 1. How often do you have a drink containing alcohol?: Monthly or less 3. How often do you have six or more drinks on one occasion?: Never Total Score: 1 GUSTAVO-7 AMB Questionnaire GUSTAVO-7 Date GUSTAVO - 7 assessed: 05/07/23 Feeling nervous, anxious, or on edge: 0 = Not at all Not being able to stop or control worryin = Not at all Worrying too much about different things: 0 = Not at all Trouble relaxin = Not at all Being so restless that it is hard to sit still: 0 = Not at all Becoming easily annoyed or irritable: 0 = Not at all Feeling afraid as if something awful might happen: 0 = Not at all Total GUSTAVO-7 score (0-4 normal; 5-9 mild; 10-14 moderate; 15-21 severe): 0 Source: Developed by Drs. Ishaan Leos, Rashmi Maravilla, Genaro Dietrich and colleagues, with an educational ganesh from [employer]. GUSTAVO-7 Assessment Billing GUSTAVO-7 Assessment Tool: GUSTAVO-7 Assessment 57757 Physical exam (Primary Care) Vital Signs: Last Vital Signs Pulse 66 08/12/23 09:35 BP 116/72 08/12/23 09:35 Pulse Ox 97 08/12/23 09:35 Oxygen Delivery Method Room Air 08/12/23 09:35 BMI result Body Mass Index 20.6 Tobacco/Smoking Status: Tobacco use Status Tobacco use date assessed 05/07/23 08/12/23 09:39 Patient Tobacco Use Status Former Tobacco user 08/12/23 09:39 Tobacco use type Cigarette 08/12/23 09:39 e-Cigarette/Vaping Use Never Used 08/12/23 09:39 PHQ-9: PHQ-9 Score PHQ-9: Total score 0 08/12/23 09:39 Depression Screening Interpretation: Negative Thrive Assessment: Date of Thrive Assessment Date Thrive assessed 08/12/23 08/12/23 09:39 Currently or been in a relationship where the following occur: no concerns reported Const General: alert; No acute distress Eyes Conjunctivae: conjunctivae normal Resp Auscultation: clear to auscultation bilaterally Cardio Rate: regular rate Rhythm: regular rhythm GI Inspection: Yes normal to inspection Extrem General: Yes normal to inspection and No edema Assessment and Plan Assessment & Plan (1) Polysubstance abuse: Comment: [facility] Code(s): F19.10 - Other psychoactive substance abuse, uncomplicated Plan: Continue follow-up with [facility] (2) Generalized anxiety disorder: Comment: May 2018 [facility] Code(s): F41.1 - Generalized anxiety disorder Plan: Continue with present medication Orders: Orders Hepatitis B,C Profile Today F19.10 - Other psychoactive substance abuse, uncomplicated, R79.89 - Other specified abnormal findings of blood chemistry Coding Level of Care Code Est Pt Level 3 (20699) Diagnoses Polysubstance abuse F19.10 Generalized anxiety disorder F41.1 Additional Codes GUSTAVO-7 Assessment Billing - GUSTAVO-7 Assessment Tool: GUSTAVO-7 Assessment 45270 ([id number])
[2023-08-12 09:35] VITALS: BP 116/72; PULSE 66; O2SAT 97; BMI 20.6
== END 2023-08-12 10:00 | disposition home or self-care (01) ==
PROVIDERS: PCP Internal Medicine; Visit Provider Internal Medicine
DX: F19.10 Other psychoactive substance abuse, uncomplicated (principal); F41.1 Generalized anxiety disorder
CPT/HCPCS: 99213

== ENCOUNTER 2024-01-12 11:06 | Outpatient (AMB) | payer OTHER, SELFPAY ==
--- NOTE | 2024-01-12 11:10 | A.OFFPC_ITS ---
Vital Signs 01/12/24 11:11 Height 6 ft 1.5 in Weight 71.214 kg BMI 20.4 BP 128/70 Blood Pressure Location Lt brachial Position Sitting Pulse 68 Pulse Source Pulse Oximeter Pulse Oximetry (%) 95 Oxygen Delivery Method Room Air Intake Visit Reasons: Med Follow Up Intake Note: Patient is here to follow up on medication management. Plant Technical Specialist Required: No Lens Grinder Apprentice: Not Required per policy Accompanied by: Self / Same As Patient Allergies No Known Allergies Allergy (Verified 01/12/24 11:11) Tobacco use date assessed: 01/12/24 Dental Screening Dental Screen Date: 05/07/23 HPI Med Follow Up HPI Details 48-year-old male with a history of polys ubstance abuse generalized anxiety disorder coming in for follow-up. Last seen in 08/23/2023. Patient's colonoscopy was done in 05/25/2023. [facility] Medical History (Updated 08/12/23 @ 09:52 by Bess Eduardo MD) Colon cancer screening Tinea corporis Varicose vein of leg Laryngitis Thrombocytopenia Generalized anxiety disorder Lesion of penis Fall Hypertension Surgical History Hx of colonoscopy H/O knee surgery History of nasal surgery History of inguinal hernia repair History of surgery on arm Family History (Updated 01/12/24 @ 11:10 by GEN Gannon) Father Nasopharyngeal cancer Mother Alive and well Brother Alive and well Sister Alive and well Maternal Grandfather Throat cancer Social History Housing: House Alcohol intake: never Patient Tobacco Use Status: Former Tobacco user Tobacco use type: Cigarette e-Cigarette/Vaping Use: Never Used Second Hand Smoke Exposure: No service: No Current occupational status: employed Cognitive needs: No Hearing needs: No Vision needs: No Questionnaire Thrive Questionnaire Date Thrive assessed: 08/12/23 Are you currently unemployed and looking for a job?: No GUSTAVO-7 AMB Questionnaire GUSTAVO-7 Date GUSTAVO - 7 assessed: 05/07/23 Source: Developed by Drs. Isahan Leos, Rashmi Maravilla, Genaro Dietrich and colleagues, with an educational ganesh from [employer]. Physical exam (Primary Care) Vital Signs: Last Vital Signs Pulse 68 01/12/24 11:11 BP 128/70 01/12/24 11:11 Pulse Ox 95 01/12/24 11:11 Oxygen Delivery Method Room Air 01/12/24 11:11 BMI result Body Mass Index 20.4 Tobacco/Smoking Status: Tobacco use Status Tobacco use date assessed 01/12/24 01/12/24 11:17 Patient Tobacco Use Status Former Tobacco user 01/12/24 11:17 Tobacco use type Cigarette 01/12/24 11:17 e-Cigarette/Vaping Use Never Used 01/12/24 11:17 Thrive Assessment: Date of Thrive Assessment Date Thrive assessed 08/12/23 01/12/24 11:17 Const General: alert; No acute distress Eyes Conjunctivae: conjunctivae normal Resp Auscultation: clear to auscultation bilaterally Cardio Rate: regular rate Rhythm: regular rhythm GI Inspection: Yes normal to inspection Extrem General: Yes normal to inspection and No edema Office Procedures Flu Questionnaire Does the patient have a severe egg allergy?: No Does the patient have severe life threatening allergies?: No Does the patient have a fever or illness today?: No Has the patient ever had Guillain-Frannie Syndrome?: No Has the patient ever had any past reaction to a flu shot?: No Immunizations Fluarix Triv [id number] (PF) 45 mcg (15 mcg x 3)/0.5 mL IM syringe Performing Provider: Bess Eduardo MD [facility] Administered by: GEN Nobles on 01/12/24 11:29 Dose Route Admin Location Dispensed Lot Number Expiration Date [facility] Stevedoring Supervisor 0.5 mL IM Left Deltoid 0.5 mL [id number] 10/02/24 [id number] Project Airplane VIS Given Date VIS Provided VIS Publication Date 01/12/24 Single Vaccine 20 Eligibility Eligibility Date Funding Source Not [facility] Eligible 01/12/24 Private Coding Level of Care Code Est Pt Level 3 (24812) Diagnoses Polysubstance abuse F19.10 Generalized anxiety disorder F41.1 Assessment & Plan Assessment & Plan (1) Polysubstance abuse: Comment: [facility] Code(s): F19.10 - Other psychoactive substance abuse, uncomplicated Category: Medical Plan: Continue to follow-up with [facility] (2) Generalized anxiety disorder: Comment: May 2018 [facility] Code(s): F41.1 - Generalized anxiety disorder Category: Medical Plan: Continue with counseling and therapy Orders: Orders Influenza [id number] Immunization Today Z23 - Encounter for immunization Medications: New Fluarix Triv [id number] (PF) (flu vacc [id number] 6mos up(PF)) 0.5 mL IM ONCE 0.5 mL 0RF NS Z23 - Encounter for immunization
[2024-01-12 11:11] VITALS: BP 128/70; PULSE 68; O2SAT 95; BMI 20.4
== END 2024-01-12 11:33 | disposition home or self-care (01) ==
PROVIDERS: PCP Internal Medicine; Visit Provider Internal Medicine
DX: F19.10 Other psychoactive substance abuse, uncomplicated (principal); F41.1 Generalized anxiety disorder; Z23 Encounter for immunization

== ENCOUNTER → 2024-01-12 11:06 | Outpatient (BNVA) | payer OTHER, SELFPAY | PROVIDERS: PCP Internal Medicine; Visit Provider Internal Medicine | DX: Z23 Encounter for immunization (principal); F41.1 Generalized anxiety disorder; F19.10 Other psychoactive substance abuse, uncomplicated | CPT/HCPCS: 90471; 90656; 99212 ==

== ENCOUNTER 2024-05-09 09:26 | Outpatient (AMB) | payer OTHER, SELFPAY ==
[2024-05-09 09:38] VITALS: BP 130/70; PULSE 90; TEMP 36.6; O2SAT 97; BMI 20.3
--- NOTE | 2024-05-09 09:38 | MHC.PC.OV ---
Vital Signs 05/09/24 09:38 Height 6 ft 1.5 in Weight 156 lb BMI 20.3 BP 130/70 Blood Pressure Location Lt brachial Position Sitting Pulse 90 Pulse Source Pulse Oximeter Temp 97.8 F Temp Source Temporal Artery Scan Pulse Oximetry (%) 97 Oxygen Delivery Method Room Air Intake Visit Reasons: GUSTAVO Intake Note: Patient is here for a medication follow-up. Today, the patient reports experiencing sinus pressure and nasal congestion for the past two days. 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 Accompanied by: Self / Same As Patient Allergies No Known Allergies Allergy (Verified 01/12/24 11:11) Medication List - Last Reconciled 05/09/24 by Nena Rubi PA-C buprenorphine-naloxone 12-3 mg (Suboxone) 1.5 film sublingual DAILY lorazepam 0.5 mg PO DAILY PRN Tobacco use date assessed: 05/09/24 Dental Screening Dental Screen Date: 05/09/24 Did you have a dental visit in the last 12 months?: Yes Did you have a dental problem in the last 6 months where you did not have access to dental care?: No Was dental information given to patient?: Patient has dentist HPI GUSTAVO HPI Details 48-year-old male with past medical history of polysubstance abuse, generalized anxiety disorder last seen 01/[address] Eduardo coming in for follow up. Patient tells us today he is feeling good in the lorazepam he takes it daily and typically at nighttime before bed help with anxiety and sleep. [facility] with [facility] and [facility] for therapy. He does mentioned his son recently tested positive for RSV and pneumonia and yesterday he began having sinus pressure and congestion that has been worsening throughout the day today. [facility] Medical History Colon cancer screening Tinea corporis Varicose vein of leg Laryngitis Thrombocytopenia Generalized anxiety disorder Lesion of penis Fall Hypertension Surgical History Hx of colonoscopy H/O knee surgery History of nasal surgery History of inguinal hernia repair History of surgery on arm Family History Father Nasopharyngeal cancer Mother Alive and well Brother Alive and well Sister Alive and well Maternal Grandfather Throat cancer Social History Housing: House Alcohol intake: never Patient Tobacco Use Status: Former Tobacco user Tobacco use type: Cigarette e-Cigarette/Vaping Use: Never Used Second Hand Smoke Exposure: No service: No Current occupational status: employed Cognitive needs: No Hearing needs: No Vision needs: No Questionnaire PHQ-9 Over the last 2 weeks, how often have you been bothered by any of the following problems? 1. Little interest or pleasure in doing things: not at all 2. Feeling down, depressed, or hopeless: not at all 3. Trouble falling or staying asleep, or sleeping too much: not at all 4. Feeling tired or having little energy: not at all 5. Poor appetite or overeating: not at all 6. Feeling bad about yourself - or that you are a failure or have let yourself or your family down: not at all 7. Trouble concentrating on things, such as reading the newspaper or watching television: not at all 8. Moving or speaking so slowly that other people could have noticed. Or the opposite - being so fidgety or restless that you have been moving around a lot more than usual: not at all 9. Thoughts that you would be better off or of hurting yourself in some way: not at all Total score: 0 Depression Screening Interpretation: Negative Depression Screening Done: Yes 66779 - PHQ-9 Billing: Yes Source: Developed by Drs. Ishaan Leos, Rashmi Maravilla, Genaro Dietrich and colleagues, with an educational ganesh from [employer]. Thrive Questionnaire Date Thrive assessed: 05/09/24 I am a: Patient What is your living situation today?: I have a steady place to live Within the past 12 months, did the food you bought not last and you didn't have the money to get more?: Never true Within the past 12 months, did you worry whether your food would run out before you got money to buy more?: Never true Do you have trouble paying for medicines?: No Do you have trouble getting transportation to medical appointments?: No Do you have trouble paying your heating and electricity bill?: No Do you have trouble taking care of your child, family member or friend?: No Do you have trouble with day-to-day activities such as bathing, preparing meals, shopping, managing finances, etc.?: No Are you currently unemployed and looking for a job?: No Are you interested in more education?: No Please select the resources that you would like help with: None Currently or been in a relationship where the following occur: No concerns reported THRIVE Score: 0 AUDIT C Alcohol Use Questionnaire (AUDIT-C) 1. How often do you have a drink containing alcohol?: Monthly or less 3. How often do you have six or more drinks on one occasion?: Never Total Score: 1 GUSTAVO-7 AMB Questionnaire GUSTAVO-7 Date GUSTAVO - 7 assessed: 05/09/24 Feeling nervous, anxious, or on edge: 0 = Not at all Not being able to stop or control worryin = Not at all Worrying too much about different things: 0 = Not at all Trouble relaxin = Not at all Being so restless that it is hard to sit still: 0 = Not at all Becoming easily annoyed or irritable: 0 = Not at all Feeling afraid as if something awful might happen: 0 = Not at all Total GUSTAVO-7 score (0-4 normal; 5-9 mild; 10-14 moderate; 15-21 severe): 0 Source: Developed by Drs. Ishaan Leos, Rashmi Maravilla, Genaro Dietrich and colleagues, with an educational ganesh from [employer]. GUSTAVO-7 Assessment Billing GUSTAVO-7 Assessment Tool: GUSTAVO-7 Assessment 49744 Review of Systems Const Denies body aches, Denies chills, Denies fever(s), Denies headache(s) and Denies poor appetite Eyes Reports no additional complaints ENT Denies dizziness, Denies headache(s), Reports nasal congestion and Reports sinus pain Card Denies chest pain, Denies syncope, Denies edema, Denies irregular heart rhythm, Denies lightheadedness and Denies dyspnea Resp Denies cough and Denies dyspnea GI Denies abdominal pain, Denies nausea and Denies vomiting Reports no additional complaints Musc Reports no additional complaints and Denies abnormal gait Skin/Breast Reports system reviewed and no additional complaints, except as documented Neuro Denies abnormal gait, Denies dizziness, Denies syncope and Denies headache(s) Psych Reports no additional complaints Physical exam (Primary Care) Vital Signs: Last Vital Signs Temp 97.8 F 05/09/24 09:38 Pulse 90 05/09/24 09:38 BP 130/70 05/09/24 09:38 Pulse Ox 97 05/09/24 09:38 Oxygen Delivery Method Room Air 05/09/24 09:38 BMI result Body Mass Index 20.3 Tobacco/Smoking Status: Tobacco use Status Tobacco use date assessed 05/09/24 05/09/24 09:44 Patient Tobacco Use Status Former Tobacco user 05/09/24 09:43 Tobacco use type Cigarette 05/09/24 09:43 e-Cigarette/Vaping Use Never Used 05/09/24 09:43 PHQ-9: PHQ-9 Score PHQ-9: Total score 0 05/09/24 09:43 Depression Screening Interpretation: Negative Thrive Assessment: Date of Thrive Assessment Date Thrive assessed 05/09/24 05/09/24 09:43 Currently or been in a relationship where the following occur: No concerns reported Const General: cooperative, healthy appearing, comfortable and no acute distress Orientation/consciousness: patient oriented x3 HENMT Head: Yes normocephalic Ears: hearing grossly normal bilaterally General nose exam: Normal external nose present Eyes General: appearance normal, both eyes and all related structures Conjunctivae: conjunctivae normal Neck Neck: Yes full ROM and Yes no lymphadenopathy Resp Effort & Inspection: normal respiratory effort Auscultation: clear to auscultation bilaterally, no crackles, no rales, no rhonchi and no wheezes Cardio Rate: regular rate Rhythm: regular rhythm Skin General skin exam: no rashes or lesions noted Neuro General: patient oriented x3 Gait exam (Neuro): Normal gait present Extrem General: Yes normal to inspection, Yes full ROM and No edema Psych Affect: normal affect Attitude: cooperative Insight: Good insight present (Psych) Judgement: Good judgement present (Psych) Coding Level of Care Code Est Pt Level 3 (22334) Diagnoses Generalized anxiety disorder F41.1 Polysubstance abuse F19.10 Anemia D64.9 Sinus congestion R09.81 Additional Codes GUSTAVO-7 Assessment Billing - GUSTAVO-7 Assessment Tool: GUSTAVO-7 Assessment 90255 ([id number]) PHQ-9 - 11195 - PHQ-9 Billing: Yes ([id number]) Assessment & Plan Assessment & Plan (1) Generalized anxiety disorder: Comment: May 2018 [facility] monthly Code(s): F41.1 - Generalized anxiety disorder Category: Medical Plan: Continue on current medication feels good on this medication. Also following with counselor. (2) Polysubstance abuse: Comment: [facility] Code(s): F19.10 - Other psychoactive substance abuse, uncomplicated Category: Medical Plan: Continue to follow with [facility] on Suboxone (3) Anemia: Code(s): D64.9 - Anemia, unspecified Category: Medical Plan: Reminded patient about blood work. (4) Sinus congestion: Code(s): R09.81 - Nasal congestion Category: Medical Plan: Patient complaining of sinus congestion and pressure. Son recently tested positive for RSV. Ordered for viral panel for further evaluation. Advised patient to use Sudafed [id number] for no longer than 3 days, saline rinses and eqdi-vga-zrhckdm cough and cold medication as needed. Plan This note was constructed using voice recognition software. While every effort has been made to ensure accuracy and harvest crew supervisor, still areas may have been included sometimes these areas may affect the content or meeting of the given symptoms. Total time spent caring for the patient today was twenty minutes. This includes time spent before the visit reviewing the chart, time spent during the visit, and time spent after the visit and documentation. Orders: Orders SARS-CoV2/FLU/RSV Today R09.89 - Other specified symptoms and signs involving the circulatory and respiratory systems
== END 2024-05-09 09:54 | disposition home or self-care (01) ==
PROVIDERS: PCP Internal Medicine
DX: F41.1 Generalized anxiety disorder (principal); F19.10 Other psychoactive substance abuse, uncomplicated; D64.9 Anemia, unspecified; R09.81 Nasal congestion

== ENCOUNTER → 2024-05-09 09:26 | Outpatient (BNVA) | payer OTHER, SELFPAY | PROVIDERS: PCP Internal Medicine | DX: F41.1 Generalized anxiety disorder (principal); F19.10 Other psychoactive substance abuse, uncomplicated; D64.9 Anemia, unspecified; R09.81 Nasal congestion | CPT/HCPCS: 96127; 99212 ==

== ENCOUNTER 2024-08-08 16:13 | Outpatient (AMB) | payer OTHER, SELFPAY ==
[2024-08-08 16:32] VITALS: BP 124/78; PULSE 68; TEMP 36.3; O2SAT 97; BMI 20.6
--- NOTE | 2024-08-08 16:32 | MHC.PC.OV ---
Vital Signs 08/08/24 16:32 Height 6 ft 1.5 in Weight 158 lb 6 oz BMI 20.6 BP 124/78 Blood Pressure Location Lt brachial Position Sitting Pulse 68 Pulse Source Pulse Oximeter Temp 97.3 F Temp Source Temporal Artery Scan Pulse Oximetry (%) 97 Oxygen Delivery Method Room Air Intake Visit Reasons: Annual Pe Allergies No Known Allergies Allergy (Verified 01/12/24 11:11) Medication List - Last Reconciled 08/08/24 by Bess Eduardo MD buprenorphine-naloxone 12-3 mg (Suboxone) 1.5 film sublingual DAILY lorazepam 0.5 mg PO DAILY PRN Tobacco use date assessed: 05/09/24 Dental Screening Dental Screen Date: 05/09/24 [facility] Medical History Colon cancer screening Tinea corporis Varicose vein of leg Laryngitis Thrombocytopenia Generalized anxiety disorder Lesion of penis Fall Hypertension Surgical History Hx of colonoscopy H/O knee surgery History of nasal surgery History of inguinal hernia repair History of surgery on arm Family History Father Nasopharyngeal cancer Mother Alive and well Brother Alive and well Sister Alive and well Maternal Grandfather Throat cancer Social History Housing: House Alcohol intake: never Patient Tobacco Use Status: Former Tobacco user Tobacco use type: Cigarette e-Cigarette/Vaping Use: Never Used Second Hand Smoke Exposure: No service: No Current occupational status: employed Cognitive needs: No Hearing needs: No Vision needs: No Questionnaire PHQ-9 Over the last 2 weeks, how often have you been bothered by any of the following problems? 1. Little interest or pleasure in doing things: not at all 2. Feeling down, depressed, or hopeless: not at all 3. Trouble falling or staying asleep, or sleeping too much: several days 4. Feeling tired or having little energy: several days 5. Poor appetite or overeating: not at all 6. Feeling bad about yourself - or that you are a failure or have let yourself or your family down: not at all 7. Trouble concentrating on things, such as reading the newspaper or watching television: not at all 8. Moving or speaking so slowly that other people could have noticed. Or the opposite - being so fidgety or restless that you have been moving around a lot more than usual: not at all 9. Thoughts that you would be better off or of hurting yourself in some way: not at all Total score: 2 74252 - PHQ-9 Billing: Yes Source: Developed by Drs. Ishaan Leos, Rashmi Maravilla, Genaro Dietrich and colleagues, with an educational ganesh from [employer]. Thrive Questionnaire Date Thrive assessed: 08/08/24 I am a: Patient What is your living situation today?: I have a steady place to live Within the past 12 months, did the food you bought not last and you didn't have the money to get more?: Never true Within the past 12 months, did you worry whether your food would run out before you got money to buy more?: Never true Do you have trouble paying for medicines?: No Do you have trouble getting transportation to medical appointments?: No Do you have trouble paying your heating and electricity bill?: No Do you have trouble taking care of your child, family member or friend?: No Do you have trouble with day-to-day activities such as bathing, preparing meals, shopping, managing finances, etc.?: No Are you currently unemployed and looking for a job?: No Are you interested in more education?: No Please select the resources that you would like help with: None Currently or been in a relationship where the following occur: No concerns reported THRIVE Score: 0 AUDIT C Alcohol Use Questionnaire (AUDIT-C) 1. How often do you have a drink containing alcohol?: Monthly or less 2. How many drinks containing alcohol do you have on a typical day when you are drinking?: 1 or 2 3. How often do you have six or more drinks on one occasion?: Never Total Score: 1 GUSTAVO-7 AMB Questionnaire GUSTAVO-7 Date GUSTAVO - 7 assessed: 08/08/24 Feeling nervous, anxious, or on edge: 1 = Several days Not being able to stop or control worryin = Not at all Worrying too much about different things: 0 = Not at all Trouble relaxin = Several days Being so restless that it is hard to sit still: 0 = Not at all Becoming easily annoyed or irritable: 0 = Not at all Feeling afraid as if something awful might happen: 0 = Not at all Total GUSTAVO-7 score (0-4 normal; 5-9 mild; 10-14 moderate; 15-21 severe): 2 Source: Developed by Drs. Ishaan Leos, Rashmi Maravilla, Genaro Dietrich and colleagues, with an educational ganesh from [employer]. GUSTAVO-7 Assessment Billing GUSTAVO-7 Assessment Tool: GUSTAVO-7 Assessment 28937 Review of Systems Const Denies poor appetite and Denies weakness Eyes Denies no additional complaints ENT Reports Normal hearing present, Denies dizziness, Denies nasal congestion, Denies tinnitus and Denies sore throat Card Denies chest pain, Denies syncope, Denies rapid heart rate and Denies dyspnea Resp Denies cough and Denies dyspnea GI Denies change in stool character, Reports constipation, Denies diarrhea, Denies nausea and Denies vomiting Denies dysuria and Denies urinary frequency Neuro Reports Normal hearing present, Denies confusion, Denies dizziness, Denies syncope and Denies weakness Psych Denies confusion Physical exam (Primary Care) Vital Signs: Last Vital Signs Temp 97.3 F 08/08/24 16:32 Pulse 68 08/08/24 16:32 BP 124/78 08/08/24 16:32 Pulse Ox 97 08/08/24 16:32 Oxygen Delivery Method Room Air 08/08/24 16:32 BMI result Body Mass Index 20.6 Tobacco/Smoking Status: Tobacco use Status Tobacco use date assessed 05/09/24 08/08/24 16:34 Patient Tobacco Use Status Former Tobacco user 08/08/24 16:34 Tobacco use type Cigarette 08/08/24 16:34 e-Cigarette/Vaping Use Never Used 08/08/24 16:34 PHQ-9: PHQ-9 Score PHQ-9: Total score 2 08/08/24 16:51 Thrive Assessment: Date of Thrive Assessment Date Thrive assessed 08/08/24 08/08/24 16:34 Currently or been in a relationship where the following occur: No concerns reported Const General: No confusion Orientation/consciousness: No confusion HENMT Other: L impacted cerumen, r tm intact Head: Yes normocephalic Ears: external ears normal Face and sinus: Yes normal facial exam Mouth: moist mucous membranes Throat: Yes tonsils normal Eyes Conjunctivae: conjunctivae normal Pupils: Equal, round and reactive pupils present and Pupil accommodation reflex normal Direct Ophthalmoscopy: normal light reflex Neck Neck: No lymphadenopathy Thyroid: Thyroid normal Chest Chest palpation & inspection: normal inspection of the chest Resp Effort & Inspection: normal respiratory effort and no audible wheezes Auscultation: clear to auscultation bilaterally, no crackles, no wheezes and lung sounds not diminished Cardio Rate: regular rate Rhythm: regular rhythm Peripheral pulses: radial pulses present and dorsalis pedis present GI Other: visual negative Palpation (GI): no masses Auscultation: normal bowel sounds and normoactive bowel sounds Rectal Exam - Male: Yes deferred Male General Exam: Yes normal external exam Skin General skin exam: no rashes or lesions noted Rashes: no rashes Neuro General: No confusion Cranial nerves: Yes Equal, round and reactive pupils present and Yes Normal hearing present Cognition (Neuro): normal cognition Gait exam (Neuro): Normal gait present Motor exam (neuro): 5/5 motor strength present throughout Deep tendon reflexes (DTR's): Right brachioradialis reflex intensity grade: 2+, Left brachioradialis reflex intensity grade: 2+, Right patellar reflex intensity grade: 2+ and Left patellar reflex intensity grade: 2+ Extrem General: No edema Office Procedures Cerumen Removal From which ear canal was the cerumen removed: left Removal: otoscope w/curette, cerumen loop/spoon and other Notes: patient tolerated procedure well, no complications and ear canal clear [id number] Wax Removal by Spoon/Curette Coding Level of Care Code Est Pt Level 3 (00766) Est Pt Prev Care 40-64y(84732) Diagnoses Annual physical exam Z00.00 Polysubstance abuse F19.10 Generalized anxiety disorder F41.1 Impacted cerumen of left ear H61.22 CPT Codes Office Procedure - CPT: 65206-Sva Wax Removal by Spoon/Curette ([id number]) Additional Codes GUSTAVO-7 Assessment Billing - GUSTAVO-7 Assessment Tool: GUSTAVO-7 Assessment 28439 ([id number]) PHQ-9 - 84241 - PHQ-9 Billing: Yes ([id number]) Assessment & Plan Assessment & Plan (1) Annual physical exam: Code(s): Z00.00 - Encounter for general adult medical examination without abnormal findings Category: Medical Plan: Patient is advised to eat healthy, keep well hydrated, keep active and have adequate sleep. (2) Polysubstance abuse: Comment: [facility] Code(s): F19.10 - Other psychoactive substance abuse, uncomplicated Category: Medical Plan: Continue to follow-up with [facility] (3) Generalized anxiety disorder: Comment: May 2018 [facility] monthly Code(s): F41.1 - Generalized anxiety disorder Category: Medical Plan: Continue with counseling and therapy (4) Impacted cerumen of left ear: Code(s): H61.22 - Impacted cerumen, left ear Category: Medical Plan: scoop and no irrigation, TM intact Plan History of Present Illness The patient is a 49-year-old male presenting for an annual physical examination. 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 He has a significant history of polysubstance abuse but is currently under a wellness plan maintaining sobriety. Blood work recently conducted in April 2022 indicated normal hematological and biochemical markers, including normal electrolytes, renal function, and liver function. The patient's last colonoscopy occurred in 2023. The patient denies a personal history of oncological or cardiovascular diseases and does not have any alcohol consumption, smoking, or recreational drug use at present. He takes Suboxone and lorazepam, with no noted medication allergies. Family history is significant for nasopharyngeal and throat cancers in the patient's father and grandfather. The patient discusses a sensation of ear blockage without dizziness, faintness, or significant auditory issues. Health Maintenance - Advised on maintaining a healthy diet emphasizing plant proteins over animal proteins. - Recommended continuing regular physical activity, including mountain biking. - Discussion on ensuring adequate hydration with six to eight glasses of water daily. - Current wellness plan in place for sobriety and continuation of counseling for generalized anxiety disorder. - Blood work done in April 2022 with normal results; no anemia detected. - Colonoscopy performed in 2023. - Annual physical examinations. Social History - Abstains from alcohol, smoking, and recreational drugs. - Engages in mountain biking as an exercise regimen. - Maintains sobriety through a [facility] wellness plan. Review of Systems - General: Denies fevers, chills, night sweats. - Cardiovascular: Denies chest pain, palpitations, syncope. - Respiratory: Denies shortness of breath, wheezing. - Gastrointestinal: Denies nausea, vomiting, diarrhea, constipation. - Genitourinary: Denies dysuria, nocturia. - Neurological: Denies dizziness, headaches, seizures. - Psychiatric: Reports generalized anxiety disorder. Physical Exam General: Cooperative, healthy appearing, comfortable, no acute distress and well developed Orientation: Patient oriented x3 Limitations: No limitations Head: Normal to inspection Ears: Hearing grossly normal bilaterally, but 60% blockage due to ear wax Nose: Normal external nose present Face and sinus: Normal facial exam Eyes: Appearance normal, both eyes and all related structures Neck: Normal visual inspection and Yes full ROM Respiratory: Normal respiratory effort and able to speak in complete sentences. Clear to auscultation bilaterally Cardiovascular: Regular rate and rhythm. Normal S1 and S2. Patient has a known heart murmur GI: Normal to inspection. Soft to palpation and nontender Skin: No rashes or lesions noted Neuro: Patient oriented x3 Extremities: Normal to inspection Results - Labs: Normal blood count, normal electrolytes, normal renal and liver function as of April 2022. Plan For the patient's annual examination, the review of recent normal lab results supports continued health stability. Reinforcement of the ongoing [facility] wellness plan and therapy for anxiety disorder remains integral, coupled with calling attention to diet and exercise routine enhancements. The right ear wax buildup requires monitoring without the use of Q-tips. The patient remains stable on Suboxone and lorazepam, and no new concerns were reported. Patient was informed and verbally consented to the use of an ambient scribe for clinic note documentation during this visit. Discussion Notes During today's visit, we discussed the importance of maintaining the patient's wellness plan, including regular therapy for generalized anxiety disorder. I emphasized avoiding the use of Q-tips for his ear wax issue, noting the risk of further impaction. We reviewed lifestyle choices, highlighting the benefits of a diet focused on plant-based proteins and the continuation of his exercise regimen via mountain biking. We talked about potential complications of his congenital heart murmur, reassuring him that no issues arise without symptom manifestation like chest pain or significant shortness of breath. Regular lab checks and annual exams were advised to monitor any future developments. Patient Instructions - Maintain regular follow-up with your [facility] wellness plan and anxiety therapy. - Keep up with regular exercise, such as mountain biking, while maintaining safety. - Focus on a plant-based diet and ensure adequate hydration. - Avoid using Q-tips for cleaning ear wax; monitor for any auditory issues. - Return for routine annual check-ups and any new or concerning symptoms.
== END 2024-08-08 17:14 | disposition home or self-care (01) ==
LOC: HO.HMCH 16:14
PROVIDERS: PCP Internal Medicine; Visit Provider Internal Medicine
DX: Z00.00 Encounter for general adult medical examination without abnormal findings (principal); H61.22 Impacted cerumen, left ear; F19.10 Other psychoactive substance abuse, uncomplicated; F41.1 Generalized anxiety disorder

== ENCOUNTER → 2024-08-08 16:13 | Outpatient (BNVA) | payer OTHER, SELFPAY | PROVIDERS: PCP Internal Medicine; Visit Provider Internal Medicine | DX: Z00.01 Encounter for general adult medical examination with abnormal findings (principal); H61.22 Impacted cerumen, left ear; F41.1 Generalized anxiety disorder; F19.10 Other psychoactive substance abuse, uncomplicated | CPT/HCPCS: 69210; 96127; 99212; 99396 ==

== ENCOUNTER 2025-01-16 15:36 | Outpatient (AMB) | payer OTHER, SELFPAY ==
[2025-01-16 15:43] VITALS: BP 126/80; PULSE 65; TEMP 36.3; O2SAT 97; BMI 21.0
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
--- OUTSIDE RECORDS SUMMARY | 2025-01-16 18:20 | XMS_ITS | Clinical Summary ---
Author Organization [facility] Address [address] [place] [address] Phone Care Team Providers Care Chief Contract Officer Name Role Phone Bess Eduardo MD Primary Care Provider [phone] Immunizations Immunization Administration Dates Next Due COVID-19 (Pre-01/25) Pfizer Vaccine, mRNA, PF ,08/07/2020 Social History Tobacco Use Types Packs/Day Years Used Date Smoking Tobacco: Never Assessed Education Answer Date Recorded Are you interested in more education? Not on lisa e 07/31/2022 Are you concerned about learning? Not on file 07/31/2022 No 07/31/2022 No 07/31/2022 Digital Access Answer Date Recorded No 08/28/2022 No 08/28/2022 No 08/28/2022 Reliable internet access at home? Not on file 08/28/2022 Device with a working camera? Not on file Sex and Gender Information Value Date Recorded Sex Assigned at Not on file Legal Sex Male 9:25 PM EDT Gender Identity Not on file Sexual Orientation Not on file Plan of Treatment Health Maintenance Due Date Last Done Comments LIPID PANEL 1977 DEPRESSION SCREENING 1989 SMOKING Hx and SMOKELESS TOBACCO SCREENING 1990 HEPATITIS C SCREENING 1995 HIV ONE-TIME SCREENING (18-6 5 YEARS) 1995 COLOGUARD 2022 COLONOSCOPY 2022 COLORECTAL CANCER SCREENING 2022 FIT TEST 2022 FOBT 2022 SIGMOIDOSCOPY 2022 VIRTUAL COLONOSCOPY 2022 INFLUENZA VACCINE (#1) 2024 02/20/2020 COVID-19 VACCINE (3 2024-2 6 season) 2024 08/29/2020, 08/07/2020 Adult Td,Tdap Booster 02/19/2030 02/20/2020 , 11/22/2008 HEPATITIS A VACCINES Aged Out No long er eligible based on patient's age to complete this topic HIB VACCINES Aged Out No longer eligi ble based on patient's age to complete this topic MENINGOCOCCAL VACCINES (ACWY) Aged Out No longer eligible based on patient's age to complete this topic MENINGOCOCCAL VACCINES (B) Aged Out N o longer eligible based on patient's age to complete this topic PNEUMOCOCCAL VACCINES (0-49 years) Aged Out No longer eligible b ased on patient's age to complete this topic Medical Devices Not on file Insurance [facility] [employer] [place] [address] [place] [address] [employer] [employer] [place] [employer] [address] [place] [address] [employer] Member Subscriber Plan / Payer (Ef fective for All Dates) Name:Virgil Rodneyer Relation to Subscriber:Self Name:ADELA RODNEY Payer ID:Not on file Group ID:Not on file Type:Medicaid Address: [place] [id number] [place], [place] [address] [address] [place] [address] [employer] [facility] [place] [address] [place] [address] [employer] [facility] Care Teams Chief Contract Officer Relationship Specialty Start Date End Date Bess Eduardo MD [address] [place] [address] PCP - General Internal Medicine 12/04/19 Additional Source Comments The information contained in this document represents components of the legal health record. It is not the complete legal health record.[facility]
== END 2025-01-16 16:00 | disposition home or self-care (01) ==
LOC: HO.HMCH 15:37
PROVIDERS: PCP Internal Medicine; Visit Provider Internal Medicine
DX: F41.1 Generalized anxiety disorder (principal); F19.10 Other psychoactive substance abuse, uncomplicated; M77.11 Lateral epicondylitis, right elbow; Z23 Encounter for immunization

== ENCOUNTER → 2025-01-16 15:36 | Outpatient (BNVA) | payer OTHER, SELFPAY | PROVIDERS: PCP Internal Medicine; Visit Provider Internal Medicine | DX: F41.1 Generalized anxiety disorder (principal); M77.11 Lateral epicondylitis, right elbow; F19.10 Other psychoactive substance abuse, uncomplicated; Z23 Encounter for immunization | CPT/HCPCS: 90471; 90656; 99212 ==